=== PATIENT | female | born 1985 | race Two or more races ===

== ENCOUNTER 2018-11-11 17:23 | Emergency (ER) | payer MEDICAID ==
[~2018-11-11] VITALS: Ht 152.4 cm; Wt 90.7 kg
[~2018-11-11 17:23] MED LIST: FERROUS SULFAT325 MG ORAL; FLONASE1 SPRAYS NASAL; IBUPROFEN800 MG ORAL; LEVOTHYROXINE50 MCG ORAL; PROMETHAZINE V237 ML ORAL; ZITHROMAX250 MG ORAL; ZOCOR20 M1 ORAL
[2018-11-11 17:31] VITALS: BP 158/94
[2018-11-11] MEDS ORDERED: Lidocaine 2% Visc 15ml soln ORAL ONE (17:45)
[2018-11-11] MEDS ORDERED: Mylanta II UD 30ml ORAL ONE (17:45)
--- NOTE | 2018-11-11 17:49 | Emergency Room Report ---
History of Present Illness General Chief Complaint: Abdominal Pain Source: Medical Record Present Illness HPI 33 YO Female Presents to the ED c/o 10 in severity burning epigastric pain x 3 days. Pt. reports symptoms mainly at night while lying down. Denies CP, SOB, cough, abdominal tenderness, N/V/F/C. Denies constipation or diarrhea. Pt. reports possibility of being . Pt. reports this is the first time she has experienced these symptoms. no significant pmhx. no aggravating or relieving factors. Denies blood in the stool or black tarry stools. Denies NSAID use. Denies excessive ETOH use. Allergies: Coded Allergies: No Known Allergies (Unverified , 03/16/14) Patient History Past Medical History: see triage record Past Surgical History: none Pertinent Family History: none Last Menstrual Period: 10/12/18 Reviewed Nursing Documentation: PMH: Agreed; PSxH: Agreed Nursing Documentation-PMH Past Medical History: No History, Except For Review of Systems All Other Systems: negative except mentioned in HPI Physical Exam Vital Signs Date Time Temp Pulse Resp B/P (MAP) Pulse Ox O2 Delivery O2 Flow Rate FiO2 11/11/18 17:26 99.0 88 16 158/94 (115) 98 Room Air Sp02 EP Interpretation: reviewed, normal General Appearance: no apparent distress, alert, GCS 15, non-toxic Head: normocephalic, atraumatic Eyes: bilateral eye normal inspection, bilateral eye PERRL ENT: hearing grossly normal, normal voice Neck: full range of motion Respiratory: lungs clear, normal breath sounds, speaking full sentences Cardiovascular #1: regular rate, rhythm Gastrointestinal: normal bowel sounds, non tender, soft, non-distended, no guarding, no hernia, no rebound Rectal: deferred Genitourinary: normal inspection, no CVA tenderness Musculoskeletal: gait/station normal, normal range of motion Neurologic: alert, oriented x3, responsive, motor strength/tone normal, sensory intact, speech normal, grossly normal Psychiatric: judgement/insight normal Medical Decision Making PA Attestation Dr. Hayes is my supervising Physician whom patient management has been discussed with. Diagnostic Impression: Primary Impression: Gastritis Qualified Codes: K29.70 - Gastritis, unspecified, without bleeding ER Course 89 YO Female Presents to the ED c/o 10 in severity burning epigastric pain x 3 days. Pt. reports symptoms mainly at night while lying down. Denies CP, SOB, cough, abdominal tenderness, N/V/F/C. Denies constipation or diarrhea. Pt. reports possibility of being . Pt. reports this is the first time she has experienced these symptoms. no significant pmhx. no aggravating or relieving factors. Denies blood in the stool or black tarry stools. Denies NSAID use. Denies excessive ETOH use. Ddx considered but are not limited to GE, colitis, acute appendicitis, SBO, H.pylori, Gastritis, PNA, pericarditis just to name a few. Vital signs: are WN. pt. is afebrile, H&PE are most consistent with Gastritis - no evidence to suggest acute abdomen on physical exam. ORDERS: -Urine Hcg: Negative ED INTERVENTIONS: -Mylanta PO -Lidocaine PO -Pepcid PO --upon re-assessment pt. states her pain has resolved. -I do not identify an emergent condition at this time. With current presentation , Pt. is stable for close outpatient follow up and conservative treatment. D/ w pt. to return promptly to ED with worsening or new symptoms.- Pt. (and or responsible republican) verbalizes' understanding and agreement with proposed treatment plan.proposed treatment plan. DISCHARGE: At this time pt. is stable for d/c to home. Will provide printed patient care instructions, and any necessary prescriptions. Care plan and follow up instructions have been discussed with the patient prior to discharge. Labs Test 11/11/18 17:40 Urine HCG, Qualitative Negative (NEGATIVE) Last Vital Signs Date Time Temp Pulse Resp B/P (MAP) Pulse Ox O2 Delivery O2 Flow Rate FiO2 11/11/18 17:31 99.0 88 16 158/94 98 Room Air Disposition: HOME, SELF-CARE Condition: Stable Scripts Lidocaine HCl 2% Viscous (Lidocaine HCl 2% Viscous) 100 Ml Solution 10 ML ORAL QID for pain, #120 ML Prov: Alba Pena 11/11/18 Ranitidine Hcl* (ZANTAC*) 150 Mg Tablet 150 MG ORAL TWICE A DAY for 10 Days, #20 TAB Prov: Alba Pena 11/11/18 Referrals: Doreen Carranza [facility] Patient Instructions: Food Choices for Gastroesophageal Reflux Disease, Adult, [id number] Additional Instructions: Take medications as directed. Follow up with a Primary Care Provider in 3-5 days, even if your symptoms have resolved. --Please review list of primary care clinics, if you do not already have a primary care provider Return sooner to ED if new symptoms occur, or current symptoms become worse. - Please note that this Emergency Department Report was dictated using [employer] boiler technology software, occasionally this can lead to erroneous entry secondary to interpretation by the dictation equipment. Alba Pena Nov 11, 2018 17:49
--- NOTE | 2018-11-11 17:49 | NUR ---
ED Nurse Note:urine sent to labs
[2018-11-11] MEDS ORDERED: LIDOCAINE VISC100 ML ORAL (18:29)
[2018-11-11] MEDS ORDERED: ZANTAC150 MG ORAL (18:29)
[2018-11-11 18:35] VITALS: BP 158/94
--- NOTE | 2018-11-11 18:37 | NUR ---
ER DISCHARGE NOTE: Patient is cleared to be discharged per ERMD, pt is aox4, on room air, with stable vital signs. pt was given dc and prescription instructions, pt was able to verbalize understanding, pt is able to ambulate with steady gait. pt took all belongings.
== END 2018-11-11 18:38 | disposition home or self-care (01) ==
LOC: EMR 17:47
DX: K29.70 Gastritis, unspecified, without bleeding (principal)
CPT/HCPCS: 81025; 99283

== ENCOUNTER 2018-12-11 23:04 | Emergency (ER) | payer MEDICAID ==
[~2018-12-11] VITALS: Ht 152.4 cm; Wt 102.1 kg
[~2018-12-11 23:04] MED LIST changes: +LIDOCAINE VISC100 ML ORAL; +ZANTAC150 MG ORAL
[2018-12-11 23:48] VITALS: BP 108/73
--- NOTE | 2018-12-11 23:48 | NUR ---
ED Nurse Note: Pt walked in c/o LT arm to shoulde pain since 12/10. Pt stated pain is worse 12/11. Pt stated unk cause. 12/28 pain.
[2018-12-12] MEDS ORDERED: Cyclobenzaprine 10mg Tab ORAL ONE (00:15)
[2018-12-12] MEDS ORDERED: Ketorolac 60mg Inj IM ONE (00:15)
[2018-12-12 00:36] LABS: APPEARANCE,URINE CLEAR; BILIRUBIN, URINE NEGATIVE (NEGATIVE); COLOR,URINE PALE YELLOW; GLUCOSE, URINE (UA) NEGATIVE (NEGATIVE); KETONES,URINE NEGATIVE (NEGATIVE); LEUKOCYTE ESTERASE ,URINE 1+ (NEGATIVE); NITRITE,URINE NEGATIVE (NEGATIVE); PH,URINE 6 (4.5-8.0); PROTEIN,URINE NEGATIVE (NEGATIVE); UROBILINOGEN,URINE NORMAL MG/DL (0.0-1.0)
[2018-12-12] MEDS ORDERED: CYCLOBENZAPRINE10 MG ORAL (01:00)
[2018-12-12] MEDS ORDERED: IBUPROFEN600 MG ORAL (01:00)
--- NOTE | 2018-12-12 01:29 | NUR ---
ER DISCHARGE NOTE: Patient is cleared to be discharged per ERMD, pt is aox4, on room air, with stable vital signs. pt was given dc and prescription instructions, pt was able to verbalize understanding, pt id band removed. pt is able to ambulate with steady gait. pt took all belongings.
[2018-12-12 01:30] VITALS: BP 108/73
--- NOTE | 2018-12-12 22:14 | Emergency Room Report ---
History of Present Illness General Chief Complaint: Upper Extremity Injury Source: Patient Present Illness HPI Patient presented for acute left-sided neck discomfort. This had onset yesterday. Patient reports having increased neck discomfort as well as difficulty with moving her neck. She denies recent trauma. She had not been having any fever. She denies any headache. She denies any numbness or weakness to her extremities. She does report having some slight pain to the paraspinous muscles on the left side of her neck. She denies any vomiting or other problems. She denies any left shoulder or elbow or hand pain. Allergies: Coded Allergies: No Known Allergies (Unverified , 03/16/14) Patient History Past Medical History: see triage record Last Menstrual Period: 10/2018 Now: No : 5 Para: 5 Reviewed Nursing Documentation: PMH: Agreed; PSxH: Agreed Review of Systems All Other Systems: negative except mentioned in HPI Physical Exam Vital Signs Date Time Temp Pulse Resp B/P (MAP) Pulse Ox O2 Delivery O2 Flow Rate FiO2 12/11/18 23:17 98.2 88 16 108/73 (85) 98 Room Air Sp02 EP Interpretation: reviewed, normal General Appearance: normal inspection, well appearing, no apparent distress, alert, GCS 15, non-toxic Head: atraumatic ENT: normal ENT inspection, hearing grossly normal, normal voice Neck: normal inspection, supple, no bony tend, limited range of motion, other - No lymphadenopathy Respiratory: normal inspection, lungs clear, normal breath sounds, no respiratory distress, no retraction, no wheezing Cardiovascular #1: regular rate, rhythm, no edema Gastrointestinal: normal inspection, normal bowel sounds, non tender, soft, no guarding, no hernia Genitourinary: no CVA tenderness Musculoskeletal: normal inspection, back normal, normal range of motion Neurologic: normal inspection, alert, oriented x3, responsive, chef concierge III-XII nml as tested, speech normal Psychiatric: normal inspection, judgement/insight normal, mood/affect normal Medical Decision Making Diagnostic Impression: Primary Impression: Acute torticollis ER Course Patient presented for neck pain. Differential diagnosis included torticollis, spinal stenosis, vertebral artery dissection, myocardial infarction, cervical fracture, arthritis, epidural abscess, spondylolithises among others. Patient has a benign exam and does not appear to require any imaging or laboratory testing at this time. Patient appears to have some acute spasm to her neck muscles. This appears to be acute torticollis. Patient does not have any fever or other suggestive findings of meningitis. Patient was given medications for symptomatic treatment. She is advised to be rechecked in 1 to 2 days for improvement. She is advised to return if worse. Labs Test 12/12/18 00:15 Urine Color Pale yellow Urine Appearance Clear Urine pH 6 (4.5-8.0) Urine Specific [place] 1.020 (1.005-1.035) Urine Protein Negative (NEGATIVE) Urine Glucose (UA) Negative (NEGATIVE) Urine Ketones Negative (NEGATIVE) Urine Blood Negative (NEGATIVE) Urine Nitrite Negative (NEGATIVE) Urine Bilirubin Negative (NEGATIVE) Urine Urobilinogen Normal MG/DL (0.0-1.0) Urine Leukocyte Esterase 1+ (NEGATIVE) Urine RBC 0-2 /HPF (0 - 2) Urine WBC 0-2 /HPF (0 - 2) Urine Squamous Epithelial Cells Few /LPF (NONE/OCC) Urine Bacteria None /HPF (NONE) Urine HCG, Qualitative Negative (NEGATIVE) Last Vital Signs Date Time Temp Pulse Resp B/P (MAP) Pulse Ox O2 Delivery O2 Flow Rate FiO2 12/12/18 01:31 98.2 12/12/18 01:30 82 16 108/73 98 Room Air Status: improved Disposition: HOME, SELF-CARE Condition: Stable Scripts Cyclobenzaprine Hcl* (FLEXERIL*) 10 Mg Tablet 10 MG ORAL TID PRN for Muscle Spasm, #20 TAB Prov: Attila Hayes MD 12/12/18 Ibuprofen* (MOTRIN*) 600 Mg Tablet 600 MG ORAL Q6H PRN for For Pain, #20 TAB 0 Refills Prov: Attila Hayes MD 12/12/18 Referrals: NON PHYSICIAN (PCP) Patient Instructions: Acute Torticollis Attila Hayes MD Dec 12, 2018 22:14
== END 2018-12-12 01:30 | disposition home or self-care (01) ==
LOC: EMR 23:34
DX: M43.6 Torticollis (principal)
CPT/HCPCS: 81003; 81025; 96372; Z7502; 99283